=== PATIENT | male | born 1965 | race Caucasian/White ===

== ENCOUNTER 2025-01-10 13:58 | Outpatient (OUT) | payer OTHER, SELFPAY ==
--- OUTSIDE RECORDS SUMMARY | 2025-01-10 14:00 | XMS_ITS | Clinical Summary ---
Author Organization [facility] Healthcare Address [address] [place] [address] Care Team Providers Care Nickel Plater Name Role Phone Unavailable Primary Care Provider Unavailabl e Allergies No known active allergies Medications MedicationSigDispense QuantityRefillsLast FilledStart DateEnd DateStatus labetalol (Normodyne) 200 MG tablet Indications:Primary hypertensionTake 1 tablet (200 mg) by mouth in the morning and 1 tablet (200 mg) before bedtime. 180 tablet ctive chlorthalidone (Hygroton) 25 MG tablet Indications:Primary hypertensionTake 1 tablet (25 mg) by mouth Daily 90 tablet ctive busPIRone (Buspar) 10 MG tablet Indications:NELLY (generalized anxiety disorder)Take 1 tablet (10 mg) by mouth in the morning and 1 tablet (10 mg) in the evening and 1 tablet (10 mg) before bedtime. 270 tablet ctive irbesartan (Avapro) 150 MG tablet Indications:Primary hypertensionTake 1 tablet (150 mg) by mouth Daily 90 tablet ctive potassium chloride ER (Micro-K) 10 MEQ ER capsule Indications:Primary hypertensionTake 2 capsules (20 mEq) by mouth Daily 180 capsule ctive Active Problems ProblemNoted DateDiagnosed DateH/O right ioklnednllx76/24/2024 Overview (04/07/2023): Partial R Nephrectomy '23 Primary omhpdasngubg58/24/2024OSA on CPAP04/07/2023GAD (generalized anxiety disorder)01/24/2024Lung codgwl8106/01/2018 Overview (04/07/2023): ==== 12/16/2022 ==== benign lung nodule noted on CT scan ==== 06/01/2018 ==== New problem, additional workup planned. Incidental finding lung nodule on chestx-ray right lower lobe. Patient is a smoker. 1/2 to 3/4 pack per day for 35 years. ==== 07/25/2018 ==== Chest CT--negative for any lesions. Chest is clear Adrenal tbvgkod4205/04/2018 Overview (04/07/2023): ==== 01/22/2021 ==== no uncontrolled high blood pressure ==== 01/22/2020 ==== stable bilateral adrenal hyperplasia based on most recent MRI ==== 05/04/2018 ==== incidentally found bilateral adrenal adenomas. Has had workup through primary care doctor for renovascular type causes as well as potential adrenal causes. Will complement that workup with the studies ordered. Does have hard to control hypertension. Three medications. At time ofdiagnosis blood pressure 250/140 and other 200/120. Patient also states prior to diagnosis of his high blood pressure and prior to his beta-laquita he was quite anxious and jittery PLAN: Adrenal adenoma functional studies (compliment workup already done). MRI should help characterize as well. ==== 06/01/2018 ==== functional studies only normetanephrine slightly elevated all other studies arewithin the normal range. Also MRI only demonstrates adenomatous hyperplasia of the adrenal gland. Nothing surgical then. No evidence of any pheochromocytoma based on MRI. PLAN: Could give some consideration for repeat functional studies on the road. ==== 07/25/2018 ==== did also see an client analyst ( after his episode of hypoKalemia) and they did not find a connection with his adrenal gland and his HTN. His K+ was low and now ever since he supplements he has good blood pressure. ==== 12/05/2018 ==== is following with client analyst regarding this. Has appointment within the next month to review MRI and his blood pressure issues etc. Last Assessment & Plan: MRI was stable adrenal findings Renal cell rgstqaits41/20/2019 Overview (04/07/2023): ==== 06/10/2022 ==== ##### status post daVinci assisted right partial nephrectomy. 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 ==== 03/04/2022 ==== ### MRI the right anterior lower pole kidney lesion no longer reach criteria for Bosniak 2 F lesion. Suspicious then for potential cystic renal cell carcinoma. Enhancing septation. Plan: Based on discussion below daVinci partial nephrectomy right side. ==== 01/22/2021 ==== MRI Bosniak 2 F cyst. Appears stable. Ultrasound 1 year ==== 01/22/2020 ==== ### MRI Bosniak 2 F. Unchanged. Small 1.6 cm Plan: MRI 1 year ==== 05/04/2018 ==== slightly under 2 cm incidental finding right lower pole anterior mass. Not entirely consistent with fluid. May have solid components. Based on ultrasound as well CT scan. These studies were evaluated reviewed. ==== 06/01/2018 ==== MRI Bosniak 2 F. Therefore repeat MRI 6 months. ==== 12/05/2018 ==== Stable lesion. Appears benign. Radiologist only recommends surveillance in one year. PLAN: mri in one year Last Assessment & Plan: Pt advised to quit smoking Encounters DateTypeDepartmentCare MgebOgdttmvpdzb15/20/2025Abstract [facility] [address] [place] [address] Unallocated, Erika Perez MD from Last 3 Months Immunizations ImmunizationAdministration DatesNext DueInfluenza Whole06/22/2018Influenza, injectable, MDCK, preservative free, belorbzfqqbj10/28/2020Influenza, injectable, quadrivalent, preservative free12/21/2022,10/24/2021,2020, 12/08/2018,01/13/2018Influenza, seasonal, genbfavycd54/22/2014Influenza, seasonal, injectable, preservative free12/31/2023,12/25/2015,01/14/2015Moderna SARS-CoV-2 Pjnciwedaml56/12/2022,03/10/2021,06/28/2020,05/31/20201347SEDR-ROS-6 (COVID-19) vaccine, mRNA, spike protein, LNP, PF, 50 mcg/0.5 mL12/31/2023, 12/21/2022Zoster, Gjkuipouynf11/17/2024,04/23/2023 Family History Medical HistoryRelationNameCommentsCancerFatherHemochromatosisFatherRelationName StatusCommentsFatherDeceasedMotherAlive Social History Tobacco UseTypesPacks/DayYears UsedDateSmoking Tobacco: Every DayCigarettes Smokeless Tobacco: Never Tobacco Cessation:Ready to Q uit: Not Asked; Counseling Given: Not Answered Alcohol UseStandard Drinks/NfcfTvuvfjthVyf56 (1 standard drink = 0.6 oz pure alcohol)PHQ-2AnswerDate RecordedPatient Health Questionnaire-2 Lljnh060 Sex and Gender InformationValueDate RecordedSex Assigned at BirthNot on file Legal VazAbli6503/24/2023 10:03 AM ESTGender IdentityNot on fileSexual Orientation Not on file Last Filed Vital Signs Vital SignReadingTime TakenCommentsBlood Mozglyjd966/8006 1:54 PM EDT Xupei6602 1:54 PM EDTTemperature--Respiratory Gchh452404/16/2023 2:03 PM ESTOxygen Yxypyktupf20%08/14/2024 1:54 PM EDTInhaled Oxygen Concentration-- Qvnonp914 kg (223 lb)08/14/2024 1:54 PM BQWEpjinp384.3 cm (5' 11 )08/14/2024 1:54 PM EDTBody Mass Index31.106 1:54 PM EDT Plan of Treatment Health MaintenanceDue DateLast DoneCommentsCT Sjbooyrwfrhf67/06/1968FIT-DNA 1967FIT1967FOBT1967 8116Ksqvueqriarxq94/06/1968Influenza Vaccine (#1)510/, 12/21/2022, 10/24/2021, Additional history exists Aruhemuqkvl54/21/230514/, 04/24/2019, 04/24/2019, Additional history existsColorectal Cancer Dmjgjootk60/21/2035 Procedures Procedure NamePriorityDate/TimeAssociated DiagnosisCommentsCOLONOSCOPY XPQVSPVEZNXeufsqh15/10/2020 from Last 3 Months or Most Recently Relevant to Health Maintenance Results * COLONOSCOPY DIAGNOSTIC (04/24/2019)Anatomical RegionLateralityModality Radiographic ImagingSpecimen (Source)Anatomical Location / Laterality Collection Method / VolumeCollection TimeReceived Time04/24/2019 Narrative 04/24/2019 4:22 PM EST Neg repeat 5 years Authorizing ProviderResult TypeResult StatusDachip Neri MDIMG XR PROCEDURES Final Result from Last 3 Months or Most Recently Relevant to Health Maintenance Insurance * Guarantor: Kin Storyount TypeRelation to PatientDate of BirthPhone Billing AddressPersonal/SjqoydYkhl36/06/1966 [address] [address]
--- OUTSIDE RECORDS SUMMARY | 2025-01-10 14:00 | XMS_ITS | Clinical Summary ---
Author Organization [employer] [facility] Address [id number] [address] [place] [address] Care Team Providers Care Civil Defense Director Name Role Phone Alton Neri MD Primary Care Provider [phone] Allergies No known active allergies Medications MedicationSigDispense QuantityRefillsLast FilledStart DateEnd DateStatus labetaloL (NORMODYNE) 200 mg tablet Indications:hypertensionTake 1 tablet (200 mg total) by mouth in the morning and 1 tablet (200 mg total) before bedtime. Indications: high blood pressure.Active potassium chloride (MICRO-K) 10 MEQ CR capsule Indications:hypokalemiaTake 2 capsules (20 mEq total) by mouth in the morning. Indications: low amount of potassium in theblood.Active chlorthalidone (HYGROTON) 25 mg tablet Indications:hypertensionTake 1 tablet (25 mg total) by mouth daily Indications: high blood pressure.Active irbesartan (AVAPRO) 150 mg tablet Indications:hypertensionTake 1 tablet (150 mg total) by mouth in the morning. Indications: high blood pressure.03/02/2019Active busPIRone (BUSPAR) 10 mg tablet Indications:generalized anxiety disorderTake 1 tablet (10 mg total) by mouth in the morning and 1 tablet (10 mg total) at noon and 1 tablet(10 mg total) before bedtime. Indications: repeated episodes of anxiety.03/02/2019Active Active Problems ProblemNoted DateDiagnosed DatePersonal history of renal cell carcinoma 06/30/2023Urologic vowclpsj06/29/2023S/P robot-assisted surgical procedure 06/03/20225688Pibvewzcsudh25/10/2019Lung jrumas8106/01/2018 Overview (11/01/2024): ==== 11/01/2024 ==== CAT scan mentioned stability. Mentions serial follow up. Patient will get periodic CAT scans that should cover this. ==== 01/10/2024 ==== no mention of any suspicious nodule. Patient will need just chest x-ray next time ==== 06/30/2023 ==== stable. They do recommend continuing imaging. Will get a chest CT in 6 months ==== 12/16/2022 ==== benign lung nodule noted on CT scan ==== 06/01/2018 ==== New problem, additional workup planned. Incidental finding lung nodule on chestx-ray right lower lobe. Patient is a smoker. 1/2 to 3/4 pack per day for 35 years. ==== 07/25/2018 ==== Chest CT--negative for any lesions. Chest is clear Renal cell catxsbjya28/20/2019 Overview (11/01/2024): ==== 11/01/2024 ==== no evidence or stigmata of metastatic disease ==== 01/10/2024 ==== no evidence metastatic disease ==== 06/30/2023 ==== doing very well. No stigmata or concern regarding any potential metastatic disease. Stable lung nodule. Kidneys looked really good. When he had his creatinine drawn he was relatively dehydrated prior secondary to hard labor. Plan: 6 months repeat imaging renal ultrasound chest CT laboratory ==== 06/10/2022 ==== ##### status post daVinci [...] one year. PLAN: mri in one year Assessment & Plan (01/10/2024 2:28 PM EDT): Doing very well. No indication of any abnormality of long. Will see him back in 9 months with chestx-ray CT scan laboratory studies return clinic Assessment & Plan (12/16/2022 2:40 PM EDT): Pt advised to quit smoking Assessment & Plan (06/10/2022 12:17 PM EDT): We discussed lifting restrictions etcetera/postoperative restrictions. Assessment & Plan (03/04/2022 12:41 PM EST): Discussed options including observation total nephrectomy partial nephrectomy both open and laparoscopic with daVinci assistance. Risks benefits in relevant anatomy discussed with patient. Reviewed the films as well. [place] agreement proceed with daVinci assisted laparoscopic partial nephrectomy right side. Completion metastatic evaluation with chest x-ray. Patient did have a previous negative chest CT few years back as well. Adrenal cidlgfg3605/04/2018 Overview (01/22/2021): ==== 01/22/2021 ==== no uncontrolled high blood [...] ==== 07/25/2018 ==== did also see an compliance specialist ( after his episode of hypoKalemia) and they did not find a connection with his adrenal gland and his HTN. His K+ was low and now ever since he supplements he has good blood pressure. ==== 12/05/2018 ==== is following with compliance specialist regarding this. Has appointment within the next month to review MRI and his blood pressure issues etc. Assessment & Plan (01/22/2021 1:04 PM EST): MRI was stable adrenal findings Prostate cancer gvzyjmxqi42/20/2019 Overview (11/01/2024): ==== 11/01/2024 ==== we will get a PSA in 6 months prior to his next visit. ==== 01/10/2024 ==== PSA good less than 1. Digital rectal exam today is benign ==== 06/30/2023 ==== will obtain a PSA prior to next visit ==== 01/22/2020 ==== recent PSA less than 1. Rectal exam is benign. ==== 05/04/2018 ==== no previous psa. We discussed screening. He wishes to proceed. ==== 06/01/2018 ==== PSA 0.54 excellent number. Assessment & Plan (12/05/2018 3:08 PM EDT): Given the low PSA can attain a PSA in 1 year. Encounters DateTypeDepartmentCare ZdwjJzeytorxmmt87/20/2025 12:15 PM EDTOffice Visit [facility] [address] [place] [address] [address] Braydon Zuniga MD Personal history of renal cell carcinoma (Primary Dx); Lung nodule; Benign prostatic hyperplasia with lower urinary tract symptoms, symptom details unspecified; Prostate cancer screening; Renal cell carcinoma ([facility])10/30/20242344Lxeqpc95/01/2025 12:30 PM EDT - 10/13/2024 11:59 PM EDTHospital Encounter [facility] [address] [place] [id number] Braydon Zuniga MD Personal history of renal cell carcinoma; Renal cell carcinoma ([facility]) Discharge Disposition: Home10/11/2024Travelfrom Last 3 Months Immunizations ImmunizationAdministration DatesNext DueInfluenza Whole06/22/2018 Family History Medical HistoryRelationNameCommentsCancerFatherHeart failureMaternal Grandfather DementiaMaternal GrandmotherArthritisMotherBeckyIrritable bowel syndromeSister RelationNameStatusCommentsFatherDeceasedMaternal GrandfatherDeceasedMaternal GrandmotherDeceasedMotherBeckyAlivePaternal GrandfatherDeceasedPaternal GrandmotherDeceasedSisterAlive Social History Tobacco UseTypesPacks/DayYears UsedDateSmoking Tobacco: Every DayCigarettes0.530 Passive Smoke Exposure: PastSmokeless Tobacco: FormerChewQuit: 05/14/2019 Tobacco Cessation:Ready to Q uit: Not Asked; Counseling Given: Not Answered Comments:not interested Alcohol UseStandard Drinks/JfwuQzlkvgpeLqc38 (1 standard drink = 0.6 oz pure alcohol)ChildcareAnswerDate PtbpiqecHavfgthwmYfrlmhb99/10/2019EmploymentAnswer Date QeewmspnQbliziiqcfTuimtkw41/10/2019Hunger ScreeningAnswerDate Recorded Within the past 12 months we worried whether our food would run out before we got money to buy more.Never True11/01/2024Within the past 12 months the food we bought just didn't last and we didn't have money to get more.Never True 11/01/2024Purpose - LifeAnswerDate RecordedPurpose and direction in lifeUnknown 04/25/2020ex and Gender InformationValueDate RecordedSex Assigned at BirthNot on fileLegal NdlYfvb1410/18/2014 11:30 AM EDTGender IdentityNot on fileSexual OrientationNot on file Last Filed Vital Signs Vital SignReadingTime TakenCommentsBlood Aoqnmpbp075/8711/01/2024 12:16 PM EDT Wslcj022411/01/2024 12:16 PM JSYAyhdkozzxrs61.2 ??C (97.1 ??F)10/02/2024 6:40 AM EDTRespiratory Nweg505010/02/2024 8:35 AM EDTOxygen Tlvvmdgmqf03%10/02/2024 8:35 AM EDTInhaled Oxygen Concentration--Hyfole81.6 kg (213 lb)11/01/2024 12:16 PM VZWHauqfn840.3 cm (5' 11 )11/01/2024 12:16 PM EDTBody Mass Index29.7108 12:16 PM EDT Plan of Treatment DateTypeDepartmentCare Team (Latest Contact Info)Tixjxkzoyax91/04/2026 1:00 PM ESTOffice Visit [facility] [address] [place] [address] [address] [facility] [address] Braydon Zuniga MD [address] [place] [address] Health MaintenanceDue DateLast DoneCommentsTobacco Ubjycrdbca58/06/1968 Depression Vujgiqshw35/06/1980Adult BMI Follow Up Plan12/18/1985DTaP,Tdap and Td Vaccines (1 - Tdap)12/18/1986COVID-19 Vaccine (7 - Moderna risk season) , 12/21/2022, 10/24/2021, Additional history existsInfluenza Ndfybwg24, 12/21/2022, 10/24/2021, Additional history exists Adult BMI Lvluyjshg60/Tobacco Jauamwalf15 Ubgxrivbgnf40, 10/02/2024, 04/24/2019, Additional history existsZoster (Shingles) DmcnklmFjpvfndza72/17/2024, 07/27/2023, 04/23/2023 Medical Devices Not on file Procedures Procedure NamePriorityDate/TimeAssociated DiagnosisCommentsCT ABDOMEN W WO CONT Cfipkhl2910/13/2024 12:53 PM EDT Personal history of renal cell carcinoma Renal cell carcinoma (CMS-HCC) PROVATION ISWGAYSCJOTUcsbhkh68/21/2025 6:35 AM EDT from Last 3 Months or Most Recently Relevant to Health Maintenance Results * CT abdomen with and without contrast (10/13/2024 12:53 PM EDT)Anatomical RegionLateralityModalityBody, Abdomen, Body CoveraN/AComputed Tomography Specimen (Source)Anatomical Location / LateralityCollection Method / Volume Collection TimeReceived Time10/17/2024 6:56 AM EDT Narrative 10/17/2024 7:02 AM EDT History: Renal cell carcinoma Technique: Contiguous axial images through the abdomen were obtained both prior to and following the administration of intravenous contrast material. ??Automated exposure control was utilized. Comparison: 06/09/2023 Findings: Postoperative changes in the right kidney from a partial nephrectomy are again demonstrated. No evidence of recurrent residual neoplasm is seen. No other renal abnormalities are identified. Bilateral adrenal gland nodules are again seen and are unchanged from previous examination. These were evaluated on an MRI dated 02-02 the benign in nature. The previous described small hypodense lesions scattered throughout the liver are again seen and are unchanged. No other hepatic abnormalities are identified. There is no evidence of any splenic, pancreatic, or gallbladder abnormalities. No other abdominal or retroperitoneal mass or adenopathy are seen. The visualized osseous structures are intact. Limited images of the lung bases show an 8 mm groundglass nodule in the left lung base (series 2 image 20) that is stable in size since the prior study. Impression: * ??Stable postoperative changes in the right kidney. No evidence of recurrent or residual neoplasmis seen * ??Stable bilateral adrenal gland nodules * ??Stable groundglass nodule in the left lung base. Follow-up CT examinations every 2 years until 5 years is recommended. All CT scans at this facility use dose modulation, iterative reconstruction, and/or weight based dosing when appropriate to reduce radiation dose to as low as reasonably achievable Finalized by Jairo Monique MD on 10/17/2024 7:02 AM Procedure Note Jairo Monique MD - 10/17/2024 History: Renal cell carcinoma Technique: Contiguous axial images through the abdomen were obtained bothprior to and following the administration of intravenous contrastmaterial. Automated exposure control was utilized. Comparison: 06/09/2023 Findings: Postoperative changes in the right kidney from a partialnephrectomy are again demonstrated. No evidence of recurrent residualneoplasm is seen. No other renal abnormalities are identified. Bilateral adrenal gland nodules are again seen and are unchanged fromprevious examination. These were evaluated on an MRI dated 02-02 in nature. The previous described small hypodense lesions scattered throughout theliver are again seen and are unchanged. No other hepatic abnormalities areidentified. There is no evidence of any splenic, pancreatic, or gallbladderabnormalities. No other abdominal or retroperitoneal mass or adenopathy are seen. Thevisualized osseous structures are intact. Limited images of the lung bases show an 8 mm groundglass nodule in theleft lung base (series 2 image 20) that is stable in size since the priorstudy. Impression: * Stable postoperative changes in the right kidney. No evidence ofrecurrent or residual neoplasm is seen * Stable bilateral adrenal gland nodules * Stable groundglass nodule in the left lung base. Follow-up CTexaminations every 2 years until [address] scans at this facility use dose modulation, iterativereconstruction, and/or weight based dosing when appropriate to reduceradiation dose to as low as reasonably achievable Finalized by Jairo Monique MD on 10/17/2024 7:02 AM Authorizing ProviderResult TypeResult StatusMicchey Zuniga [facility] ORDERABLES Final Result * Colonoscopy Report (10/02/2024 6:35 AM EDT)Specimen (Source)Anatomical Location / LateralityCollection Method / VolumeCollection TimeReceived Time Narrative SYSTEMGENERATED, DOCUMENTATION - 10/02/2024 6:35 AM EDT This order has been auto-finalized for image and report archival in PACs. *For full report details, please reach out to your physician. ??This image is visible to you in MyChart.* Authorizing ProviderResult TypeResult StatusMichael E Grillis DOIMG OR IMG ORDERABLESFinal Result from Last 3 Months or Most Recently Relevant to Health Maintenance Insurance * Guarantor: Reg StoryAccount TypeRelation to PatientDate of PhoneBilling AddressPersonal/GvqgryQqli32/06/1966 [address] [address] Advance Directives * Full Code (Latest Code Status on File) Date ActivatedDate InactivatedComments06/22/2018 4:23 PM06/23/2018 2:07 PM Care Teams Team MemberRelationshipSpecialtyStart DateEnd Date Alton Neri MD [address] [facility] [address] [place] [address] PCP - GeneralInternal Medicine06/03/23
== END 2025-01-10 13:59 | disposition home or self-care (01) ==
LOC: FHNEUROLOG 13:58
PROVIDERS: PCP Internal Medicine; Visit Provider Psychiatry & Neurology Neurology
DX: G47.33 Obstructive sleep apnea (adult) (pediatric) (principal); G47.10 Hypersomnia, unspecified; R06.83 Snoring
CPT/HCPCS: G0463